=== PATIENT | female | born 1970 | race Caucasian/White ===

== ENCOUNTER 2017-10-09 15:25 | Emergency (ER) | payer BC ==
[2017-10-09] MEDS ORDERED: Aspirin Low Dose CHEW TAB* 81 MG PO ONE (15:39)
[2017-10-09 16:21] LABS: ABS Basophils 0 10^3/ul (0-0.2); ABS Eosinophils 0.2 10^3/ul (0-0.6); ABS Lymphocytes 3.1 10^3/ul (1.0-4.8); ABS Monocytes 0.7 10^3/ul (0-0.8); ABS Neutrophils 5.1 10^3/ul (1.5-7.7); ABS Nucleated RBC 0 10^3/ul; Eosinophil % 2.4 % (0-6); Hematocrit 41 % (35-47); Hemoglobin 14.1 g/dl (12.0-16.0); Lymphocyte % 33.8 % (25-47); Mean Corpuscular HGB Conc 34 g/dl (31-36); Mean Corpuscular Hemoglobin 29 pg (27-31); Mean Corpuscular Volume 84 fL (80-97); Mean Platelet Volume 7 um3 (7.4-10.4); Nucleated Red Blood Cells % 0; Platelet Count 304 10^3/ul (150-450); Red Blood Count 4.94 10^6/ul (4.0-5.4); Red Cell Distribution Width 14 % (10.5-15); White Blood Count 9.2 10^3/ul (3.5-10.8)
--- NOTE | 2017-10-09 16:26 | RAD ---
INDICATION: Chest pain COMPARISON: September 17, 2013 TECHNIQUE: An AP portable view obtained at 1607 hours is submitted. FINDINGS: Bones/Soft Tissues: There are no acute bony findings. Cardiomediastinal: The cardiomediastinal silhouette is normal. Lungs: There are no infiltrates. Pleura: There are no pleural effusions. Other: None IMPRESSION: NO ACTIVE DISEASE.
[2017-10-09 16:27] LABS: INR 0.88 (0.77-1.02)
[2017-10-09 16:35] LABS: EGFR Non-African American 71.7 (>60)
[2017-10-09] MEDS ORDERED: Acetaminophen TAB* 325 MG PO ONE (17:37)
[2017-10-09] MEDS ORDERED: Al Hydrox/Mg Hydrox/Simet LIQ* 30 ML UDC ONE (19:15)
[2017-10-09] MEDS ORDERED: Lidocaine 2% VISCOUS* 15 ML UDC ONE (19:15)
[2017-10-09] MEDS ORDERED: Lidocaine 2% VISCOUS* 15 ML UDC PO ONE (19:16)
[2017-10-09] MEDS ORDERED: Pantoprazole IV* 40 MG IV ONE (19:16)
[2017-10-09] MEDS ORDERED: Al Hydrox/Mg Hydrox/Simet LIQ* 30 ML UDC PO ONE (19:16)
[2017-10-09] MEDS ORDERED: Pantoprazole IV* 40 MG ONE (19:25)
[2017-10-09 20:08] VITALS: BP 150/61
--- NOTE | 2017-10-09 20:23 | ED ---
Dilip Frost Stephanie, scribed for Paige Benson MD on 10/09/17 at 1557 . HPI Chest Pain - HPI Summary HPI Summary: The pt is a 47 y/o F presenting to the ED with c/o mid-sternal CP that began at 13:00. The pain radiates to her back and is described as a heavy pressure. The pain is rated as a 7 in severity. Symptoms include cough, JOHNSON, wheezing and bilateral ankle swelling. - History of Current Complaint Chief Complaint: EDChestPainROMI Time Seen by Provider: 10/09/17 15:39 Hx Obtained From: Patient Onset/Duration: Started Hours Ago - 3, Still Present Timing: Constant Current Severity: Moderate Pain Intensity: 5 Pain Scale Used: 0-10 Numeric Chest Pain Location: Mid Sternal Chest Pain Radiates: Yes Chest Pain Radiates To:: Back Character: Pressure/Squeezing Aggravating Factor(s): Other: - stress Alleviating Factor(s): Nothing Associated Signs and Symptoms: Positive: Chest Pain, Headaches, Cough, Back Pain - Allergy/Home Medications Allergies/Adverse Reactions: Allergies Allergy/AdvReac Type Severity Reaction Status Date / Time bees Allergy Severe Anaphylatic Uncoded 02/13/15 21:03 Shock PMH/Surg Hx/FS Hx/Imm Hx Cardiovascular History: Reports: Hx Hypertension Respiratory History: Reports: Hx Asthma - as child, Hx Sleep Apnea - current CPAP user GI History: Reports: Hx Gastroesophageal Reflux Disease Psychiatric History: Reports: Hx Depression - Cancer History Hx Chemotherapy: No Hx Radiation Therapy: No - Surgical History Surgery Procedure, Year, and Place: fibroid removal - Immunization History Date of Tetanus Vaccine: Unsure Date of Influenza Vaccine: 2012 Infectious Disease History: No Infectious Disease History: Denies: Traveled Outside the [place] in Last 30 Days - Family History Known Family History: Positive: Cardiac Disease, Hypertension, Other - cancer - Social History Occupation: Employed Full-time Lives: With Family Alcohol Use: Occasionally Substance Use Type: Reports: None Smoking Status (MU): Never Smoked Tobacco Review of Systems Negative: Fever Positive: Chest Pain Positive: Cough, Other - wheezing Positive: Edema - bilateral ankle , Other - back pain Positive: Headache All Other Systems Reviewed And Are Negative: Yes Physical Exam - Summary Physical Exam Summary: Appearance: Ill-appearing, moderate pain distress, Well-nourished Skin: Warm, color reflects adequate perfusion Head: Normal Head/Face inspection Eyes: Conjunctiva clear ENT: Normal inspection Neck: Supple, no nodes, no JVD. Respiratory: Lungs clear, Normal breath sounds, no respiratory distress Cardio: RRR, No murmur, pulses normal, brisk capillary refill Abdomen: soft, nontender Bowel sounds: present Musculoskeletal: Strength Intact/ ROM intact. No calf tenderness. Trace LE edema bilaterally. Neuro: Alert, muscle tone normal, facial symmetry, speech normal, sensory/motor intact Psychological: Normal Triage Information Reviewed: Yes Vital Signs On Initial Exam: Initial Vitals Temp Pulse Resp BP Pulse Ox 99.3 F 117 20 184/81 97 10/09/17 15:27 10/09/17 15:27 10/09/17 15:27 10/09/17 15:27 10/09/17 15:27 Vital Signs Reviewed: Yes Diagnostics - Vital Signs Vital Signs Temp Pulse Resp BP Pulse Ox 10/09/17 15:27 99.3 F 117 20 184/81 97 - Laboratory Result Diagrams: 10/09/17 16:05 10/09/17 16:05 Lab Statement: Any lab studies that have been ordered have been reviewed, and results considered in the medical decision making process. - Radiology CXR Xray Interpretation: No Acute Changes Radiology Interpretation Completed By: Radiologist - No active disease. - EKG 15:33 Cardiac Rate: Tachycardia EKG Rhythm: Sinus Tachycardia - [address] Segment: Non-Specific Ectopy: None EKG Interpretation: nml AVIVCT, nml QTc, and nml axis. No STEMI EKG Comparison: Other - No change since 09/17/13 Re-Evaluation - Re-Evaluation First Eval Change: Unchanged - second troponin is neg but pt still with chest pain. Given GI cocktail. Second Eval Re-Evaluation Time: 19:25 - Pain is a "2". Given protonix with good relief. Pt agrees to DC. Change: Improved Chest Pain Course/Dx - Course Course Of Treatment: The pt is a sign out to Dr. Higgins at shift change. Discharge - Discharge Plan Condition: Stable Disposition: HOME Discharge Disposition Comment: This pt is a sign out to Dr. Higgins at shift change. Patient Education Materials: Chest Pain (ED), Gastroesophageal Reflux Disease ( ED), Edema (ED) Referrals: Yomaira Gregory MD [Primary Care Provider] - Additional Instructions: Your BNP (an indicator of heart failure) was very low at 30, so we do not think this is the cause of your edema (swelling of your legs). Also, your thyroid levels were normal, another cause of edema. Your troponin levels were also normal, meaning no sign of heart damage at this time, with the chest pain you experienced. Talk to Dr. Gregory about whether she wants to do further testing based on your cardiac risks but we did not find a diagnosis that required admission at this time. We gave you aspirin, tylenol, protonix 40mg IV and a "GI cocktail" while you were in the ER with relief of your headache and your chest pain and GERD. Return to the ER if you have any new or worsening symptoms. The documentation as recorded by the Dilip tripathi Stephanie accurately reflects the service I personally performed and the decisions made by me, Paige Benson MD.
== END 2017-10-09 20:12 | disposition home or self-care (01) ==
LOC: ED 15:25
DX: R07.89 Other chest pain (principal); R05 Cough; R51 Headache; R06.2 Wheezing; M79.89 Other specified soft tissue disorders
CPT/HCPCS: 36415; 71045; 80053; 82550; 82553; 83605; 83735; 83880; 84443; 84484; 84702; 85025; 85610; 85730; 93005; 96374; 99283; A9270-GY